=== PATIENT | male | born 1990 | race Caucasian/White ===

== ENCOUNTER 2018-08-18 12:52 | Inpatient (IN) | payer OTHER, MEDICAID ==
[~2018-08-18] VITALS: Ht 175.3 cm; Wt 79.0 kg
[2018-08-18] MEDS ORDERED: SODIUM CHLORIDE 0.9% 1,000 ML IVB ONE (14:10)
[2018-08-18] MEDS ORDERED: ONDANSETRON HCL 4 MG/2 ML VIAL IV ONE (14:15)
[2018-08-18] MEDS ORDERED: MEPERIDINE HCL (25 MG/ML) 1ML VIAL IV ONE (14:15)
[2018-08-18 14:29] LABS: Basophils # (auto) 0 uL; Basophils % (auto) 0.2 % (0.0-2.0); Eosinophils # (auto) 0.1 uL; Eosinophils % (auto) 0.6 % (0.0-7.0); Hematocrit 48.7 % (41.0-53.0); Hemoglobin 16.1 g/dL (13.5-17.5); Lymphocytes # (auto) 1.2 uL; Lymphocytes % (auto) 10.9 % (10.0-50.0); Mean Corpuscular Hemoglobin 30.2 pg (28.0-32.0); Mean Corpuscular Hgb Conc. 33.1 g/dL (32.0-36.0); Mean Corpuscular Volume 91.3 fL (80.0-100.0); Monocytes # (auto) 0.7 uL; Monocytes % (auto) 6.5 % (0.0-12.0); Neutrophils # (auto) 8.7 uL; Neutrophils % (auto) 81.8 % (37.0-80.0); Nucleated Red Blood Cells % 0.1 %; Platelet Count (auto) 226 10^3/uL (140-450); Red Blood Cells 5.34 10^6/uL (4.5-5.90); Red Cell Distribution Width 14.4 % (11.8-14.3); White Blood Cell 10.6 10^3/uL (4.4-10.8)
[2018-08-18 14:46] LABS: Urine Bacteria NONE SEEN /hpf (None Seen); Urine Blood Negative /uL (Negative); Urine Mucus FEW (None Seen); Urine Specific Gravity 1.024 (1.001-1.035); Urine WBC <1 /hpf (0 - 3)
[2018-08-18 14:51] LABS: Calcium 8.7 mg/dL (8.5-10.1); Potassium 3.7 mmol/L (3.5-5.1)
[2018-08-18 14:52] LABS: Magnesium 2.2 mg/dL (1.6-2.6)
[2018-08-18 14:53] LABS: Alcohol, Urine < 3.0 mg/dL (0-5); Amphetamine Screen, Urine NEGATIVE (NEGATIVE); Barbiturate Scree,Urine NEGATIVE (NEGATIVE); Benzodiazephine Screen, Urine NEGATIVE (NEGATIVE); Cannabinoid Screen, Urine NEGATIVE (NEGATIVE); Cocaine Screen, Urine NEGATIVE (NEGATIVE); Opiate Scree,Urine NEGATIVE (NEGATIVE); Phencyclidine Screen, Urine NEGATIVE (NEGATIVE)
[2018-08-18 14:54] LABS: BUN/Creatinine Ratio 12.4; Bilirubin, Total 0.6 mg/dL (0.2-1.0)
[2018-08-18] MEDS ORDERED: PROMETHAZINE HCL 25 MG/ML 1ML IV ONE (16:15)
[2018-08-18] MEDS ORDERED: HYDROmorphone HCL 2 MG/ML VL IV ONE (16:15)
[2018-08-18] MEDS ORDERED: IOHEXOL 300 MG/ML 100ML BOTTLE IJ ONE (16:21)
[2018-08-18] MEDS ORDERED: LORazepam 2MG/ML-1ML VIAL IV PRN (16:30)
[2018-08-18] MEDS ORDERED: PROMETHAZINE HCL 25 MG/ML 1ML IV PRN (16:30)
[2018-08-18] MEDS ORDERED: MORPHINE SULFATE 4 MG/ML SYR/VIAL IV PRN ×2 (16:30)
[2018-08-18] MEDS ORDERED: PANTOPRAZOLE 40 MG/10 ML VIAL IV ONE (16:30)
[2018-08-18] MEDS ORDERED: NITROGLYCERIN 0.4 MG SL TAB SL PRN (16:30)
[2018-08-18] MEDS ORDERED: cefTRIAXone 1GM/50ML D5W 50 ML IV ONE (16:30)
[2018-08-18] MEDS: SODIUM CHLORIDE 0.9% 1,000 ML IV SCH ×2 (17:15→22:56)
[2018-08-18] MEDS: metroNIDAZOLE 500MG/100ML 100 ML IV SCH (18:06)
[2018-08-18 19:45] VITALS: BP 115/75
[2018-08-18 20:22] LABS: Hematocrit 47.3 % (41.0-53.0); Hemoglobin 15.3 g/dL (13.5-17.5)
[2018-08-18 22:00] VITALS: BP 119/59
[2018-08-19] MEDS: MORPHINE SULFATE 4 MG/ML SYR/VIAL IV PRN ×6 (00:47→21:01)
[2018-08-19 01:14] LABS: Hematocrit 44.2 % (41.0-53.0); Hemoglobin 14.6 g/dL (13.5-17.5)
[2018-08-19] MEDS: metroNIDAZOLE 500MG/100ML 100 ML IV SCH ×3 (01:37→17:46)
[2018-08-19] MEDS: SODIUM CHLORIDE 0.9% 1,000 ML IV SCH ×3 (02:22→17:51)
[2018-08-19 06:06] VITALS: BP 123/66
[2018-08-19 06:29] LABS: Basophils # (auto) 0 uL; Basophils % (auto) 0.1 % (0.0-2.0); Eosinophils # (auto) 0 uL; Eosinophils % (auto) 0.1 % (0.0-7.0); Hematocrit 44.2 % (41.0-53.0); Hemoglobin 14.6 g/dL (13.5-17.5); Lymphocytes % (auto) 9.1 % (10.0-50.0); Mean Corpuscular Hemoglobin 30.1 pg (28.0-32.0); Mean Corpuscular Hgb Conc. 32.9 g/dL (32.0-36.0); Mean Corpuscular Volume 91.3 fL (80.0-100.0); Monocytes # (auto) 1.1 uL; Monocytes % (auto) 9.7 % (0.0-12.0); Nucleated Red Blood Cells % 0.1 %; Platelet Count (auto) 196 10^3/uL (140-450); Red Blood Cells 4.84 10^6/uL (4.5-5.90); Red Cell Distribution Width 14.2 % (11.8-14.3); White Blood Cell 11.2 10^3/uL (4.4-10.8)
[2018-08-19 06:48] LABS: Albumin 3.3 g/dL (3.4-5.0); Calcium 8.1 mg/dL (8.5-10.1); Potassium 3.9 mmol/L (3.5-5.1)
[2018-08-19 06:58] LABS: BUN/Creatinine Ratio 13.7; Bilirubin, Total 0.9 mg/dL (0.2-1.0); Total Protein 6.5 g/dL (6.4-8.2)
[2018-08-19] MEDS: cefTRIAXone 1GM/50ML D5W 50 ML IV SCH (08:41)
[2018-08-19 09:00] VITALS: BP 103/62
[2018-08-19] MEDS: PANTOPRAZOLE 40 MG/10 ML VIAL IV SCH (10:00)
[2018-08-19 13:00] VITALS: BP 102/58
[2018-08-19] MEDS ORDERED: HYDROcodone-ACET 10/325MG TAB PO PRN (14:15)
[2018-08-19 17:00] VITALS: BP 128/86
[2018-08-19 22:00] VITALS: BP 121/75
[2018-08-20] MEDS: MORPHINE SULFATE 4 MG/ML SYR/VIAL IV PRN ×7 (01:10→22:50)
[2018-08-20] MEDS: metroNIDAZOLE 500MG/100ML 100 ML IV SCH ×3 (02:26→19:10)
[2018-08-20] MEDS: SODIUM CHLORIDE 0.9% 1,000 ML IV SCH ×4 (02:27→21:36)
[2018-08-20 05:20] VITALS: BP 120/69
[2018-08-20 06:08] LABS: Basophils # (auto) 0 uL; Basophils % (auto) 0.4 % (0.0-2.0); Eosinophils # (auto) 0 uL; Eosinophils % (auto) 0.6 % (0.0-7.0); Hematocrit 42.1 % (41.0-53.0); Lymphocytes # (auto) 1.4 uL; Lymphocytes % (auto) 18.6 % (10.0-50.0); Mean Corpuscular Hemoglobin 30.1 pg (28.0-32.0); Mean Corpuscular Hgb Conc. 33.2 g/dL (32.0-36.0); Mean Corpuscular Volume 90.6 fL (80.0-100.0); Monocytes # (auto) 0.9 uL; Monocytes % (auto) 11.5 % (0.0-12.0); Neutrophils # (auto) 5.3 uL; Neutrophils % (auto) 68.9 % (37.0-80.0); Nucleated Red Blood Cells % 0.1 %; Platelet Count (auto) 169 10^3/uL (140-450); Red Blood Cells 4.65 10^6/uL (4.5-5.90); White Blood Cell 7.8 10^3/uL (4.4-10.8)
[2018-08-20 06:29] LABS: BUN/Creatinine Ratio 13.2; Potassium 3.7 mmol/L (3.5-5.1)
[2018-08-20 06:31] LABS: Total Protein 6.4 g/dL (6.4-8.2)
[2018-08-20 08:49] VITALS: BP 102/56
[2018-08-20] MEDS: cefTRIAXone 1GM/50ML D5W 50 ML IV SCH (09:00)
[2018-08-20] MEDS: PANTOPRAZOLE 40 MG/10 ML VIAL IV SCH (11:07)
[2018-08-20 13:00] VITALS: BP 120/75
[2018-08-20 17:04] VITALS: BP 122/76
[2018-08-20 21:09] VITALS: BP 126/73
[2018-08-21] MEDS: metroNIDAZOLE 500MG/100ML 100 ML IV SCH ×3 (01:29→17:41)
[2018-08-21] MEDS: MORPHINE SULFATE 4 MG/ML SYR/VIAL IV PRN ×2 (02:33→06:57)
[2018-08-21] MEDS: SODIUM CHLORIDE 0.9% 1,000 ML IV SCH ×3 (03:56→17:40)
[2018-08-21 05:20] VITALS: BP 110/56
[2018-08-21 05:44] LABS: Basophils # (auto) 0 uL; Basophils % (auto) 0.6 % (0.0-2.0); Eosinophils # (auto) 0.1 uL; Eosinophils % (auto) 2.5 % (0.0-7.0); Hematocrit 39.6 % (41.0-53.0); Hemoglobin 13.1 g/dL (13.5-17.5); Lymphocytes # (auto) 1.5 uL; Lymphocytes % (auto) 26.9 % (10.0-50.0); Mean Corpuscular Volume 90.8 fL (80.0-100.0); Monocytes # (auto) 0.7 uL; Monocytes % (auto) 12.7 % (0.0-12.0); Neutrophils # (auto) 3.3 uL; Neutrophils % (auto) 57.3 % (37.0-80.0); Nucleated Red Blood Cells % 0.1 %; Platelet Count (auto) 172 10^3/uL (140-450); Red Blood Cells 4.36 10^6/uL (4.5-5.90); Red Cell Distribution Width 13.4 % (11.8-14.3); White Blood Cell 5.8 10^3/uL (4.4-10.8)
[2018-08-21 06:05] LABS: Albumin 2.9 g/dL (3.4-5.0); Potassium 3.8 mmol/L (3.5-5.1)
[2018-08-21 06:07] LABS: BUN/Creatinine Ratio 16.9
[2018-08-21 06:19] LABS: Total Protein 6.2 g/dL (6.4-8.2)
[2018-08-21 09:00] VITALS: BP 111/69
[2018-08-21] MEDS: cefTRIAXone 1GM/50ML D5W 50 ML IV SCH (09:57)
[2018-08-21] MEDS: PANTOPRAZOLE 40 MG/10 ML VIAL IV SCH (09:58)
[2018-08-21 13:00] VITALS: BP 118/68
[2018-08-21 13:55] VITALS: BP 118/68
[2018-08-21 17:00] VITALS: BP 113/72
== END 2018-08-21 18:40 | disposition home or self-care (01) | DRG 440 ==
LOC: TELE-WESTW 12:52 → ER 12:52 → TELE 16:19 → TELE-WESTW 18:36
PROVIDERS: ADMIT Internal Medicine; ATTEND Family Medicine
DX: K85.81 Other acute pancreatitis with uninfected necrosis (principal); Z82.49 Family history of ischemic heart disease and other diseases of the circulatory system; Z88.1 Allergy status to other antibiotic agents
CPT/HCPCS: 36415; 71045; 74176; 74177; 80053; 80307; 81001; 82150; 83690; 83735; 84478; 85014; 85018; 85025; 94761; C9113; G0378; J0696; J2405; J3490